=== PATIENT | female | born 2000 | race Caucasian/White ===

== ENCOUNTER 2023-12-14 11:11 | Emergency (ER) | payer SELFPAY ==
[2023-12-14 11:27] VITALS: BP 150/87; PULSE 62; RESP 22; TEMP 36.8; O2SAT 100; BMI 25.2
[2023-12-14 11:41] LABS: Basophils % 0.3 %; Hematocrit 41.6 % (36-47); Lymphocytes # 0.7 10^3/uL (0.8-4.8); Lymphocytes % 9.5 %; Mean Corpuscular Hemoglobin 24.8 pg (27-33); Mean Corpuscular Volume 82.5 fl (85-98); Mean Platelet Volume 9.8 fL (7.4-10.4); Monocytes # 0.2 10^3/uL (0.2-0.9); Monocytes % 2.3 %; Neutrophils # 6.81 10^3/uL (1.8-7.7); Neutrophils % 87.5 %; Nucleated Red Blood Cells % 0 %; Platelet Count 401 10^3/cmm (157-399); Red Blood Count 5.04 10^6/uL (3.85-5.65); Red Cell Distribution Width 18.4 % (12.1-15.1); White Blood Count 7.78 10^3/uL (3.29-11.43)
[2023-12-14] MEDS: ondansetron 2 mg/ML SDV 2 mL 4 MG IVP (11:54)
[2023-12-14] MEDS: sodium chloride 0.9% 1,000 ML 999 ML IV (11:54)
[2023-12-14 11:59] LABS: HCG, Serum Qual Negative (Negative)
[2023-12-14 12:03] LABS: Alanine Aminotransferase 11 U/L (0-33); Albumin Level 4.5 g/dL (3.5-5.2); Alkaline Phosphatase 58 U/L (35-105); Anion Gap 19.7 (5-19); Aspartate Amino Transferase 15 U/L (0-32); Blood Urea Nitrogen 7 mg/dL (6-20); Calcium 9.8 mg/dL (8.5-10.5); Carbon Dioxide 20 mmol/L (22-29); Chloride 100 mmol/L (98-107); Creatinine Clr Calc Pharmacy 153.6336; Globulin 3.5 g/dL (1.3-4.6); Glucose 130 mg/dL (65-115); Lipase 31 U/L (13-60); Osmolality Calculated 282 mOsm/kg (285-295); Potassium 3.7 mmol/L (3.5-5.1); Sodium 136 mmol/L (136-145); Total Bilirubin 0.3 mg/dL (0.15-1.2)
[2023-12-14 12:10] LABS: Urine Appearance Cloudy (CLEAR); Urine Color Dark Yellow (Yellow); pH Urine 6 (5-7)
[2023-12-14 12:11] LABS: Add Urine Microscopic? YES; Bilirubin Urine 1+ (Negative); Blood Urine Trace (Negative); Glucose Urine UA Norm (Normal); Ketones Urine 3+ (Negative); Leukocyte Esterase Urine Trace (Negative); Nitrate Urine Negative (Negative); Protein Urine 1+ (Negative); Urobilinogen Urine Norm (Negative)
[2023-12-14 12:14] LABS: Bacteria Urine 1+ /hpf; Mucus Urine 1+ /hpf; WBC Urine 0-4 /hpf (0-5)
[2023-12-14 12:15] LABS: Add Urine Culture? No; Amorphous Sediment Urine 3+ /hpf
--- NOTE | 2023-12-14 12:16 | W.ED.NAVMDI ---
HPI - Nausea/Vomiting/Diarrhea General: Chief complaint: Nausea/Vomiting/Diarrhea Stated complaint: abd pain N/V Time Seen by Provider: 12/14/23 11:29 Source: patient and family Mode of arrival: ambulatory Limitations: no limitations History of Present Illness: Patient was nausea vomiting and pain all over. Not just pain in her stomach. Hurts everywhere. She gets more nauseous and more pain with breathing. When she does discuss her symptoms she has a very histrionic presentation to them. However is able to calm down for exam without issue and immediately. Unsure at this point if this is because of the severity of illness or patient's baseline mannerisms. Review of Systems General: Reports: 10 or more systems reviewed and unremarkable except in HPI and below Physical Exam Const: COMMON NORMALS: no acute distress, average body habitus, patient oriented x3, healthy appearing, alert and well nourished GENERAL APPEARANCE: well kempt and well developed HENMT: COMMON NORMALS: normocephalic, atraumatic, external ears normal and moist oral mucous membranes HEAD & SCALP: normocephalic and atraumatic EXTERNAL EAR: Yes external ears normal Eye: COMMON NORMALS: Equal, round and reactive pupils present, EOMs intact bilaterally and conjunctivae normal CONJUNCTIVA: Yes conjunctivae normal PUPIL: Yes Equal, round and reactive pupils present Neck/C-Spine: COMMON NORMALS: full ROM, no lymphadenopathy and supple Chest: CHEST: Yes Symmetrical chest wall rise and No Surgical scars present (Chest) Resp: COMMON NORMALS: normal respiratory effort, No retractions, No use of accessory muscles and clear to auscultation bilaterally AUSCULTATION: clear to auscultation bilaterally Cardio: COMMON NORMALS: regular rate, regular rhythm, S1 normal heart sound present, S2 normal heart sound present, No gallops present (Cardio), No clicks present (Cardio), No murmurs present (Cardio) and No rub (Cardio) RATE: regular rate RHYTHM: regular rhythm HEART SOUNDS: S1 normal heart sound present, S2 normal heart sound present and no murmurs PERIPHERAL PULSES: other (Radial pulses 2+ and symmetric) GI: COMMON NORMALS: Soft to palpation, non-tender and no masses INSPECTION: No abdominal distension PALPATION: Yes Soft to palpation, No Guarding due to palpation present (GI) and No Rebound tenderness present : COMMON NORMALS: Yes no CVA tenderness BLADDER/KIDNEY EXAM: Yes no CVA tenderness Back/Pelvis: COMMON NORMALS: no CVA tenderness Extremity: COMMON NORMALS: normal to inspection, full ROM, capillary refill normal and no clubbing, cyanosis or edema Neuro: COMMON NORMALS: patient oriented x3 SENSORIUM/ORIENTATION: Yes alert Psych: APPEARANCE: Yes well kempt Skin: COMMON NORMALS: no rashes or lesions noted, no wounds, turgor normal and no jaundice GENERAL SKIN EXAM: no rashes or lesions noted and turgor normal Course Reevaluation(s): Reevaluation #1: Patient much improved. Reports ready for discharge. Haldol worked perfectly to end her nausea. Highly suspect this is cannabinoid hyperemesis. Time: 13:12 Vital Signs: Vital signs: Vital Signs Temperature 98.2 F 12/14/23 11:27 Pulse Rate 62 12/14/23 11:27 Respiratory Rate 22 H 12/14/23 11:27 Blood Pressure 150/87 12/14/23 11:27 Pulse Oximetry 100 12/14/23 11:27 Oxygen Delivery Me thod Room Air 12/14/23 11:27 MDM - Nausea/Vomiting/Diarrhea Medical Decision Making Patient with history of GI issues. Given fluids Zofran did not help. Given low-dose Tylenol for the nausea vomiting and that worked appropriately. Patient requesting discharge. Discussed syndrome such as cannabinoid hyperemesis and other issues that could be upsetting things. Patient reports understanding. No fever or other typical viral symptoms but cannot exclude. However I highly suspect this is a cannabinoid hyperemesis. History was provided during the visit by patient and her father. Follow-up with primary care and GI. Differential Diagnosis Likely food poisoning, gastroenteritis and drug-induced nausea and vomiting Medical Records I reviewed the patient's medical records. Lab Data I reviewed the patient's lab results. 12/14/23 11:34 12/14/23 11:34 Laboratory Results WBC 7.78 10^3/uL (3.29-11.43) 12/14/23 11:34 RBC 5.04 10^6/uL (3.85-5.65) 12/14/23 11:34 Hgb 12.50 g/dL (11.27-16.99) 12/14/23 11:34 Hct 41.6 % (36-47) 12/14/23 11:34 MCV 82.5 fl (85-98) L 12/14/23 11:34 MCH 24.8 pg (27-33) L 12/14/23 11:34 MCHC 30.0 g/dL (30-55) 12/14/23 11:34 RDW 18.4 % (12.1-15.1) H 12/14/23 11:34 Plt Count 401 10^3/cmm (157-399) H 12/14/23 11:34 MPV 9.8 fL (7.4-10.4) 12/14/23 11:34 Neut % (Auto) 87.5 % 12/14/23 11:34 Lymph % (Auto) 9.5 % 12/14/23 11:34 [place] % (Auto) 2.3 % 12/14/23 11:34 Eos % (Auto) 0.0 % 12/14/23 11:34 Baso % (Auto) 0.3 % 12/14/23 11:34 Neut # (Auto) 6.81 10^3/uL (1.8-7.7) 12/14/23 11:34 Lymph # (Auto) 0.7 10^3/uL (0.8-4.8) L 12/14/23 11:34 [place] # (Auto) 0.2 10^3/uL (0.2-0.9) 12/14/23 11:34 Eos # (Auto) 0.0 10^3/uL (0.0-0.8) 12/14/23 11:34 Baso # (Auto) 0.0 10^3/uL (0.0-0.1) 12/14/23 11:34 Nucleated RBC % (auto) 0 % 12/14/23 11:34 Nucleated RBCs # 0.0 /100WBC 12/14/23 11:34 Sodium 136 mmol/L (136-145) 12/14/23 11:34 Potassium 3.7 mmol/L (3.5-5.1) 12/14/23 11:34 Chloride 100 mmol/L (98-107) 12/14/23 11:34 Carbon Dioxide 20 mmol/L (22-29) L 12/14/23 11:34 Anion Gap 19.7 (5-19) H 12/14/23 11:34 BUN 7 mg/dL (6-20) 12/14/23 11:34 Creatinine 0.6 mg/dL (0.5-0.9) 12/14/23 11:34 GFR Calculation 125.0 mL/min (90-130) 12/14/23 11:34 Glucose 130 mg/dL (65-115) H 12/14/23 11:34 Calculated Osmolality 282 mOsm/kg (285-295) L 12/14/23 11:34 Calcium 9.8 mg/dL (8.5-10.5) 12/14/23 11:34 Total Bilirubin 0.3 mg/dL (0.15-1.2) 12/14/23 11:34 AST 15 U/L (0-32) 12/14/23 11:34 ALT 11 U/L (0-33) 12/14/23 11:34 Alkaline Phosphatase 58 U/L (35-105) 12/14/23 11:34 Total Protein 8.0 g/dL (6.6-8.7) 12/14/23 11:34 Albumin 4.5 g/dL (3.5-5.2) 12/14/23 11:34 Globulin 3.5 g/dL (1.3-4.6) 12/14/23 11:34 Lipase 31 U/L (13-60) 12/14/23 11:34 HCG, Qual Negative (Negative) 12/14/23 11:34 Urine Color Dark yellow (Yellow) 12/14/23 11:56 Urine Appearance Cloudy (CLEAR) A 12/14/23 11:56 Urine pH 6 (5-7) 12/14/23 11:56 Ur Specific [place] 1.020 (1.005-1.030) 12/14/23 11:56 Urine Protein 1+ (Negative) H 12/14/23 11:56 Urine Glucose (UA) Norm (Normal) 12/14/23 11:56 Urine Ketones 3+ (Negative) H 12/14/23 11:56 Urine Blood Trace (Negative) H 12/14/23 11:56 Urine Nitrate Negative (Negative) 12/14/23 11:56 Urine Bilirubin 1+ (Negative) H 12/14/23 11:56 Urine Urobilinogen Norm mg/dL (Negative) 12/14/23 11:56 Ur Leukocyte Esterase Trace (Negative) H 12/14/23 11:56 Urine RBC None /hpf (0-2) 12/14/23 11:56 Urine WBC 0-4 /hpf (0-5) H 12/14/23 11:56 Ur Squamous Epith Cells 5-10 /hpf (0-5) H 12/14/23 11:56 Amorphous Sediment 3+ /hpf 12/14/23 11:56 Urine Bacteria 1+ /hpf (NONE) H 12/14/23 11:56 Urine Mucus 1+ /hpf 12/14/23 11:56 No radiology studies performed this visit Discharge Plan Discharge Patient Disposition: Home Clinical Impression: Nausea & vomiting Qualifiers: Vomiting type: unspecified Qualified Code(s): R11.2 - Nausea with vomiting, unspecified Condition: Stable Prescriptions: New ondansetron 4 mg tablet,disintegrating 4 mg PO Q6H PRN (Reason: nausea and vomiting) Qty: 20 0RF promethazine 25 mg tablet 25 mg PO Q6H PRN (Reason: nausea and vomiting) Qty: 30 0RF No Action Sprintec (28) 0.25-35 mg-mcg tablet 1 tab PO BEDTIME Discharge Orders: Discharge ED (Routine); Ordered 12/14/23 Ordered By: Stone Cuevas Discharge Diet: Advance as tolerated and Full LIquid Discharge Activity: Resume usual activity Patient Instructions: Acute Nausea and Vomiting (ED) Coding Level of Care Code ED Lead Worker Of Housekeeping And La[employer] for Danni Prieto
[2023-12-14 12:17] LABS: Amphetamines Screen Urine Negative (Negative); Barbiturates Screen Urine Negative (Negative); Benzodiazepines Screen Urine Negative (Negative); Cocaine Screen Urine Negative (Negative); Opiate Screen Urine Negative (Negative); PCP Screen Urine Negative (Negative); THC Screen Urine Positive (Negative)
[2023-12-14 12:29] VITALS: BP 115/65; PULSE 65; RESP 16; O2SAT 100
[2023-12-14] MEDS: haloperidol inj 5 mg/mL INJ 1 mL 2.5 MG IVP (12:35)
[2023-12-14 13:37] VITALS: BP 118/63; PULSE 86; RESP 18; O2SAT 98
== END 2023-12-14 13:46 | disposition home or self-care (01) ==
PROVIDERS: Emergency Medicine; Emergency Provider Emergency Medicine
DX: R11.2 Nausea with vomiting, unspecified (principal)
CPT/HCPCS: 80053; 80306; 81001; 83690; 84703; 85025; 96361; 96374; 96375; 99284; J1630; J2405; J7030